=== PATIENT | female | born 1960 | race Caucasian/White ===

== ENCOUNTER 2016-11-22 18:37 | Emergency (ER) | payer OTHER ==
--- NOTE | 2016-11-22 19:28 | ED ---
Lower Extremity - HPI Summary HPI Summary: Pt here w/ fall prior to arrival. Was distracted by looking off in the distance when she misstepped on the edge of the sidewalk and rolled Rt ankle in grass - this triggered her to fall onto her Rt side. Has Rt ankle swelling and pain - denies numbness, tingling, weakness. Pain is worse w/ movement, palpation of the lateral ankle and bear weight. She also reports Rt wrist pain w/ touch and supination/pronation - denies swelling, numbness, tingling, weakness. Rt knee is a little sore - no pain w/ movement and strength intact. Rt hip is sore to touch and move as well - no pain radiating into groin, leg. She did not hit her head nor does she have GRIFFITH, nausea, neck pain or visual change. 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 - Allergies/Home Medications Allergies/Adverse Reactions: Allergies Allergy/AdvReac Type Severity Reaction Status Date / Time No Known Allergies Allergy Verified 11/22/16 18:57 PMH/Surg Hx/FS Hx/Imm Hx Previously Healthy: Yes Endocrine/Hematology History: Reports: Hx Thyroid Disease - hypothyroid - take levothuroxine Denies: Hx Anticoagulant Therapy, Hx Blood Disorders Cardiovascular History: Reports: Hx Hypercholesterolemia - statin, Hx Hypertension - metoprolol+ Psychiatric History: Reports: Hx Anxiety - alprazolam, Hx Depression - velafaxine Infectious Disease History: No Infectious Disease History: Denies: Traveled Outside the [place] in Last 30 Days - Social History Occupation: Unemployed Lives: With Family Alcohol Use: None Hx Substance Use: No Substance Use Type: Reports: None Hx Tobacco Use: Yes Smoking Status (MU): Former Smoker Review of Systems Negative: Fatigue Eyes: Negative Negative: Photophobia, Blurred Vision, Diplopia ENT: Negative Negative: Dental Pain Cardiovascular: Negative Negative: Chest Pain Negative: Abdominal Pain, Vomiting, Nausea Positive: no symptoms reported Musculoskeletal: Other - see HPI Skin: Negative Neurological: Negative Psychological: Normal - concerned but calm All Other Systems Reviewed And Are Negative: Yes Physical Exam Triage Information Reviewed: Yes Vital Signs On Initial Exam: Initial Vitals Temp Pulse Resp BP Pulse Ox 98.4 F 81 18 140/64 96 11/22/16 18:41 11/22/16 18:41 11/22/16 18:41 11/22/16 18:41 11/22/16 18:41 Vital Signs Reviewed: Yes Appearance: Positive: Well-Appearing, No Pain Distress, Well-Nourished Skin: Positive: Warm, Dry - 2mm ecchymosis over central dorsal Rt wrist - TTP w/ o edema; Rt lateral malleolus with edema and TTP, possible early signs of ecchymosis Head/Face: Positive: Normal Head/Face Inspection Eyes: Positive: Normal, EOMI ENT: Positive: Hearing grossly normal Neck: Positive: Supple, Nontender Respiratory/Lung Sounds: Positive: Breath Sounds Present, Other - NTTP Cardiovascular: Positive: Normal, Pulses are Symmetrical in both Upper and Lower Extremities Abdomen Description: Positive: Nontender, Soft Bowel Sounds: Positive: Present Musculoskeletal: Positive: Limited @ - Rt ankle ROM d/t pain, swelling - MT's are NTTP; FROM wrist but reports pain w/ supination/pronation and area w/ ecchymosis is TTP - no gross deformity, Pain @ - see above Neurological: Positive: Normal, Sensory/Motor Intact, Alert, Oriented to Person Place, Time, CN Intact II-III Psychiatric: Positive: Normal - Ana Coma Scale Coma Scale Total: 15 Procedures - Splinting Hand-Made Type: fiberglass Splint: sugar-tong - + posterior walking Pre-Proc Neuro Vasc Exam: normal Post-Proc Neuro Vasc Exam: normal Diagnostics - Vital Signs Vital Signs Temp Pulse Resp BP Pulse Ox 11/22/16 18:45 98.4 F 81 18 140/64 96 11/22/16 18:41 98.4 F 81 18 140/64 96 - Laboratory Lab Statement: Any lab studies that have been ordered have been reviewed, and results considered in the medical decision making process. Lower Extremity Course/Dx - Course Course Of Treatment: Pt lives in [place] and driving home tomorrow. Will take disc and report w/ her to relay details of Rt distal fibula fracture to ortho at in [place] - she will call tomorrow to schedule f/u upon returning home. Advised on tx as well as prevention of clot formation - reviewed danger s/sx of when to return to ED. Pt and partner agree w/ plan. - Diagnoses Provider Diagnoses: Closed fracture of right distal fibula, Right wrist sprain Discharge - Discharge Plan Condition: Stable Disposition: HOME Prescriptions: HYDROcodone/ACETAMIN 5-325 MG* [Neihart 5-325 TAB*] 1 tab PO Q6H PRN #20 tab MDD 4 PRN Reason: Pain Ibuprofen TAB* [Motrin TAB* 600 MG] 600 mg PO Q6H PRN #20 tab PRN Reason: Pain Patient Education Materials: Ankle Fracture (ED), Splint Care (ED), Crutch Instructions (ED), Wrist Sprain (ED) Additional Instructions: You have a distal fibula fracture. It is important that you rest, ice, elevate and keep splint in place until seen by user support specialist later this week or early next. Call tomorrow to schedule an appointment. We have sent your XR disc along with you as well as your XR report. Please share this information with your user support specialist when making and attending appointment. You may take ibuprofen 600mg every 6 hours with food for pain and swelling. You have also been provided with a short course of norco, a narcotic pain medication , to help with sleep and severe breakthrough pain. Your right wrist sprain may be treated in the same fashion (rest, ice, elevate and wear TANGELA wrap for comfort) On your ride home, stay hydrated and stop frequently to move around to prevent blood clot. If you develop calf pain, chest pain, shortness of breath, bloody cough, back pain or fever, go to nearest ED *If your toes change color or you develop numbness or weakness, you may loosen TANGELA wrap for 20 minute - if symptoms persist, return to ED
--- NOTE | 2016-11-22 20:00 | RAD ---
Indication: Lateral malleolus pain and tenderness to palpation post fall. Comparison: No relevant prior exams available on the [facility] [place]. Technique: AP, mortise, and lateral views RIGHT ankle. Report: Nondisplaced oblique fracture at the distal metaphysis of the fibula terminating inferiorly at the level of the ankle mortise. Negative for additional fracture. The ankle mortise remains congruent. Small talocrural joint effusion. Soft tissue swelling over the lateral malleolus. IMPRESSION: Estrada type B fracture pattern lateral malleolus.
--- NOTE | 2016-11-22 20:02 | RAD ---
INDICATION: Dorsal midline wrist pain and bruising post fall. COMPARISON: None. TECHNIQUE: AP, lateral, and oblique views RIGHT wrist. REPORT: Normal articular alignment. No cortical disruption or suspicious trabecular irregularity to suggest fracture. Mild dorsal soft tissue swelling. IMPRESSION: Mild dorsal soft tissue swelling without additional finding. If there is high index of suspicion for an occult scaphoid fracture repeat exam in 7 - 10 days would be suggested.
[2016-11-22] MEDS ORDERED: Ibuprofen TAB* 800 MG PO ONE ×2 (20:55)
[2016-11-22] MEDS ORDERED: HYDROcodone/ACETAMIN 5-325 MG* 1 TAB PO ONE (20:55)
[2016-11-22 22:01] VITALS: BP 136/64
== END 2016-11-22 22:01 | disposition home or self-care (01) ==
LOC: ED 18:37
DX: S82.831A Other fracture of upper and lower end of right fibula, initial encounter for closed fracture (principal); S99.911A Unspecified injury of right ankle, initial encounter; S63.501A Unspecified sprain of right wrist, initial encounter; W19.XXXA Unspecified fall, initial encounter; Y93.9 Activity, unspecified; Y92.9 Unspecified place or not applicable; Z87.891 Personal history of nicotine dependence
CPT/HCPCS: 99282; A9270-GY